=== PATIENT | female | born 1950 | race Two or more races ===

== ENCOUNTER 2024-09-07 17:39 | Emergency (ER) | payer OTHER ==
[~2024-09-07] VITALS: Ht 157.5 cm; Wt 73.0 kg
--- NOTE | 2024-09-07 18:05 | ED.PDOC ---
History of Present Illness HPI Comments 74 y/o F, with a history of obesity and bilateral shoulder and knee surgery and cholecystectomy, presents with c/o left-chest wall pain s/p mechanical fall and injury, today. Patient endorses on injuring herself after falling on top of a tote she was carrying when she tripped over a concrete parking block when returning to her vehicle from a [employer] meeting, earlier, this evening. She comments further on feeling short of breath, immediately, prior to symptom subsiding upon arrival to ED. She denies any additional injuries, shortness of breath, weakness, numbness, or other associated symptoms or modifiers at this time. 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 TESTER Hx Family History Family History: Unknown Social History Smoker: Non-Smoker Alcohol: Denies ETOH Use Drugs: Denies Drug Use Lives In: Home Musculoskeletal: reports: others (left chest wall pain ) All Other Systems: Reviewed and Negative (negative unless otherwise stated above or in HPI) Physical Exam General Appearance: No Apparent Distress, Obese HEENT: Normal ENT Inspection, Pharynx Normal, TMs Normal Neck: Full Range of Motion, Non-Tender, Normal, Normal Inspection Respiratory: Chest Non-Tender, Lungs Clear, No Accessory Muscle Use, No Respiratory Distress, Normal Breath Sounds Cardiovascular: No Edema, No JVD, No Murmur, No Gallop, Normal Peripheral Pulses, Regular Rate/Rhythm Breast Exam: Deferred Gastrointestinal: No Organomegaly, Non Tender, No Pulsatile Mass, Normal Bowel Sounds, Soft Genitalia: Deferred Pelvic: Deferred Rectal: Deferred Extremities: No calf tenderness, Normal capillary refill, Normal inspection, Normal range of motion, Non-tender, No pedal edema Musculoskeletal : Location: Left Extremity Location: Chest Apperance: Normal, Tenderness (no crepitus tenderness to palpation to left- entire chest wall anterior to lateral side) 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 Was a procedure done?: No Differential Dx Considerations may include: musculoskeletal pain, bruising, contusions, dislocation, fractures X-Ray, Labs, Meds, VS Vital Signs Date Time Temp Pulse Resp B/P (MAP) Pulse Ox O2 Delivery O2 Flow Rate FiO2 09/07/24 19:42 98 19 97 Room Air 09/07/24 19:42 97.6 98 19 160/75 (103) 97 97.6 09/07/24 17:52 98.0 110 18 167/83 (111) 100 Time of 1ST Reevaluation: 19:30 Reevaluation 1ST: Unchanged Time of 2ND Reevaluation: 20:22 Reevaluation 2ND: Improved Patient Education/Counseling: Diagnosis, Treatment, Prognosis, Need For Follow Up Family Education/Counseling: Diagnosis, Treatment, Prognosis, Need For Follow Up, No Family Present Additional Information - The following tests were ordered, and results were reviewed by me: (X-Ray) - I reviewed and agreed with the following test results read by other provider: (X-ray) - I discussed treatments and results with medical personnel xray does not show ptx, pulm contusion. however, there be a frx of the left 6th rib. pt declined pain medications. she has pain medications and would just like to have a muscle relaxant prescribed. i reviewed the pulmonary toiletry techniques with her Departure 1 Departure Time of Disposition: 20:21 Impression: Primary Impression: Rib fracture Qualified Codes: S22.32XA - Fracture of one rib, left side, initial encounter for closed fracture Disposition: HOME / SELF CARE / HOMELESS Condition: Good e-Prescriptions Cyclobenzaprine Hcl (CYCLOBENZAPRINE HCL) 7.5 Mg Tab 7.5 MG PO Q8HP PRN for 5 Days, #15 TAB Prov: LARRY RUIZ MD 09/07/24 Discharged With: Self, Relative Critical Care Note Critical Care Time?: No Stability Stability form required: No Heart Score Heart Score: Heart Score Response (Comments) Value History N/A 0 EKG N/A 0 Age N/A 0 Risk Factors N/A 0 Troponin N/A 0 Total 0 I personally scribed for LARRY RUIZ MD ([facility]) on 09/07/24 at 18:05. Electronically submitted by Paulo Beach [email or web address]). LARRY RUIZ MD Sep 07, 2024 18:05
--- NOTE | 2024-09-07 19:35 | DVH ---
CHEST RADIOGRAPH Indication: injury Technique: Single frontal view of the chest with 4 views of the left ribs was obtained Comparison: None FINDINGS: Lines and Tubes: None Lungs: No focal consolidation. Pleura: No effusion. No pneumothorax. Cardiomediastinal contours: Unremarkable Bones: There appears to be minimal cortical step-off of the left anterior 6th rib. [id number] l evoconvex curvature of the lumbar spine with multilevel moderate degenerative changes of the partiall y visualized lumbar spine IMPRESSION: No acute cardiopulmonary disease. Minimal cortical step-off over the left anterior 6th rib. Recommend correlation with point tenderness for possible fracture. Otherwise, no evidence for acute traumatic fractures.
[2024-09-07 19:42] VITALS: BP 160/75; PULSE 98; RESP 19; TEMP 97.6; O2SAT 97
[2024-09-07] MEDS: HYDROcodone-ACET 5/325MG TAB PO ONE (19:44)
[2024-09-07] MEDS ORDERED: CYCL-838 PO (20:22)
== END 2024-09-07 21:17 | disposition left against medical advice (07) ==
LOC: ER 17:39
DX: S22.32XA Fracture of one rib, left side, initial encounter for closed fracture (principal); Z90.49 Acquired absence of other specified parts of digestive tract; W01.0XXA Fall on same level from slipping, tripping and stumbling without subsequent striking against object, initial encounter; Y93.89 Activity, other specified; Y92.89 Other specified places as the place of occurrence of the external cause; Y99.8 Other external cause status
CPT/HCPCS: 71101